=== PATIENT | female | born 1930 | race Caucasian/White ===

== ENCOUNTER 2017-01-02 08:52 | Inpatient (IN) | payer MEDICARE, OTHER ==
--- NOTE | ~2017-01-02 | OP ---
Record Of Operation [facility] [address] [place]. [address] NAME: JERRY LESTER : [birth year] STATUS : ADM IN [facility]#: [id number] AGE: 86 ADM/REG DATE : 01/02/17 MR#: [id number] REPORT SERV DATE: 01/04/17 DICTATED BY: CHRISTIANO CARRENO DATE: 01/03/17 REPORT STATUS : Draft TRANSCRIBED BY: MODL DATE: 01/03/17 DATE OF PROCEDURE: 01/03/2017 SURGEON: Christiano Carreno MD OPERATIVE RECEIVING TEAM MEMBER: MAHI Leija COMPLICATIONS: None. ESTIMATED BLOOD LOSS: Less than 75 mL. DISPOSITION: Stable to recovery room. ANESTHESIA: General with interscalene block augmentation for postoperative pain control. PREOPERATIVE DIAGNOSES: 1. Left shoulder pain. 2. Comminuted displaced 4-part proximal humerus fracture dislocation. POSTOPERATIVE DIAGNOSES: 1. Left shoulder pain. 2. Comminuted displaced 4-part proximal humerus fracture dislocation. OPERATIVE PROCEDURE: 1. Left shoulder evaluation under anesthesia. 2. Left shoulder reverse total shoulder arthroplasty for fracture. 3. Humeral head autograft impaction technique. IMPLANTS USED: One glenoid base plate, one 36 mm glenosphere with a 10-degree inferior tilt, one 7 x 130 mm reversed fracture stem, one 36 x 6 mm polyethylene insert, and four 4.5 screws, two nonlocking and two locking of the appropriate size. OPERATIVE PROCEDURE IN DETAIL: The diagnoses listed above as well as recommended surgical procedure, and risks and benefits thereof discussed in full detail with Jerry Lester and family on the afternoon of 01/03/2017. Ms. Lester is a fairly independent 86-year-old female who is fairly independent living with her granddaughters. She has a fairly complex medical history including some peripheral neuropathy, which has led to several falls in the recent past. She has had multiple dislocations of her right shoulder, but more recently, she suffered a fall which led to a fracture dislocation of her left shoulder. This brought her into the [facility] emergency department, at which time, x-rays demonstrated evidence for a fracture dislocation of the left shoulder. She was originally admitted Dr. Thomas's service at the [facility] facility. After discussion with me, we decided to transfer her to [facility] due to the complexity of her case and the likely need for a reverse total shoulder arthroplasty for management. As that is my area of expertise, Dr. Thomas has requested to transfer her to my service and I have happily agreed. The patient was then transferred to [facility]. The hospitalist was consulted for medical management Record Of Operation [facility] [address] [place]. [address] NAME: JERRY LESTER : [birth year] STATUS : ADM IN PAT#: [id number] AGE: 86 ADM/REG DATE : 01/02/17 MR#: [id number] REPORT SERV DATE: 01/04/17 DICTATED BY: CHRISTIANO CARRENO DATE: 01/03/17 REPORT STATUS : Draft TRANSCRIBED BY: MODL DATE: 01/03/17 and preoperative clearance. They did appropriate tests and ultimately cleared her for surgery today noting that she was at moderate risk due to her medical comorbidities. A lengthy discussion was held with the patient and her family regarding the complexity of her case and the risks and benefits of the procedure. We discussed the conservative nonoperative care as well as the alternative options including open reduction and internal fixation versus hemiarthroplasty. In the end with the hopes of performing one surgery with the most definitive fixation and trying to avoid additional procedures in the future, the decision was made to move forward with a reverse total shoulder arthroplasty. Due to the high level of comminution of her upper proximal humerus fracture and her age of [age] years old, we would like to avoid the need for return to the OR for additional revision type procedures. We believe that the reverse shoulder arthroplasty will likely give her the most stable shoulder and provide pain relief she is seeking. We are also optimistic that she will have a good return of function and be able to return to her previous level of independence. This was discussed in full detail with the patient's family. Appropriate questions were asked, which were answered to their satisfaction. Informed consent was signed, witnessed, and placed in the chart. The left upper extremity was then marked for confirmation and an interscalene block was placed by the anesthesia team with good success. The patient was then wheeled to the operative arena, where general anesthesia was administered. The patient was placed in the beach-chair position with all nonoperative extremities well padded and secured for the duration of the case. The left upper extremity was examined under anesthesia and found to be ecchymotic and unstable from an anterior fracture dislocation. The left upper extremity was then prepped and draped in a typical orthopedic sterile fashion. A surgical pause was performed, confirming both the correct patient as well as proper surgical sites and procedure. All present were in agreement. The patient received appropriate antibiotics for perioperative antibiosis. All standard anatomic landmarks as well as operative incision sites were demarcated using a sterile marking pen. A 10 blade was used to create an 8 cm incision in the coronal plane originating from the posterior border of the acromioclavicular joint and traveling distally over the lateral aspect of the shoulder. The soft tissues were dissected down sharply to expose the deltoid muscular fascia. The anterior muscular raphe was identified and then split providing full access to the subacromial space. The rotator cuff had been torn at the time of the fracture dislocation and retracted somewhat medially. There was maceration of the anterior aspect of the supraspinatus tendon. The biceps had nearly fully torn as well. A longitudinal split was made between the supraspinatus and infraspinatus freeing up of both muscle tendons. The biceps was then captured using Ethibond sutures and released from its insertion on the labral complex for later tenodesis. The deltoid split was continued distally to approximately 4.5 cm off the lateral border of the acromion with great care being taken not to progress distal to this location to avoid injury to the axillary nerve. The axillary nerve was palpated and identified distal to and safe from our operative incision. Full deltoid flaps were then reflected anteriorly and posteriorly. This allowed us further exposure of the glenohumeral joint. The glenoid was fully evaluated and found to be in good condition without evidence for any substantial injury from the fracture dislocation. No bone stalk had been compromised. The labrum was degenerative as would be expected and the chondral surface was showing signs of fairly significant wear. The labrum was excised circumferentially using electrocautery. Our targeting guide was then placed centrally over the glenoid and our starting drill was used to ream a central hole. Our Record Of Operation [facility] [address] [place]. [address] NAME: JERRY LESTER : [birth year] STATUS : ADM IN PAT#: [id number] AGE: 86 ADM/REG DATE : 01/02/17 MR#: [id number] REPORT SERV DATE: 01/04/17 DICTATED BY: CHRISTIANO CARRENO DATE: 01/03/17 REPORT STATUS : Draft TRANSCRIBED BY: NITHIN DATE: 01/03/17 glenoid reamer was then used to ream the articular surface of the glenoid down to a bleeding bone surface. Our PEG drill was then used to increase the size of our central hole. Autograft was harvested from the fracture fragments that had been removed from the fracture site. The fracture fragments were in multiple pieces. There was one primary fragment which compromised approximately 60% of the humeral head. There was a split portion to this fracture fragment and the remainder the fragments including of the greater tuberosity and lesser tuberosity were in multiple pieces with a high level of comminution. All free- floating fragments were excised in their entirety as they were fully devascularized. Any bone fragments which were still attached to soft tissues including rotator cuff insertions were debrided of any bulk, but the shell of bone was preserved for later reattachment of the prosthesis. At this point, her glenoid base plate was inserted into the central hold and impacted into place. All four holes were drilled and filled with the appropriate sized screws, two locking and two nonlocking. Our nonlocking screws were placed anterior and posterior first to secure the glenoid base plate all the way down to the glenoid with good compression. Next, the superior and inferior locking screws were placed with excellent purchase. Pulsatile lavage was used to irrigate the glenoid base plate with copious amounts of sterile saline. A 36 mm glenosphere with a 10-degree inferior tilt was then impacted into place setting the Aj taper on the glenoid base plate. The central fixation screw was then secured for secondary backup fixation. The glenosphere was palpated and found to be extremely solid with excellent positioning on the glenoid inferior and with 10 degrees of the inferior tilt. At this juncture, our attention was returned to the humeral shaft. All fragmentation of bone was excised once again. Pulsatile lavage was used to irrigate out the shaft. Any sharp bony prominences were debrided using a rongeur. The shaft was brought out the wound and exposed laterally. Our diaphyseal reamers were then used and a size 7 diaphyseal reamer was found to fit the most appropriately. Next, a size 7 humeral stem was trialed and found to fit with excellent security. This was trialed along with a 6 mm polyethylene trial and found to articulate nicely with the previously placed glenosphere. At this juncture, the trial was removed. Pulsatile lavage was used to irrigate out the humeral shaft and the operative wound. A cement restrictor was placed two canal diameters distal to the distal most extent of the prosthesis. Cement was then mixed and placed into the humeral shaft after protecting the remainder of the operative wound. A 7 x 130 mm reverse fracture stem was then opened on the back table and inserted into place measuring our retroversion off the forearm. The humeral head autograft cutting jig was used to fashion a perfectly sized bone plug for the proximal portion of the humeral stem. This was debrided of any cartilaginous tissue and then under direct pressure inserted into the precontoured bone graft slot in the proximal humeral stem. The humeral stem was impacted in place. A 36 x 6 mm polyethylene liner was then opened and impacted into place. The reverse glenohumeral joint was then reduced. Any additional free cement was excised from the operative wound and from around the prosthesis. Pulsatile lavage was again used to irrigate the operative wound as well as the prosthesis with copious sterile saline. The glenohumeral joint reverse prosthesis articulated quite nicely was under excellent tensioning. The shoulder was very stable and had a nice return of functional motion. After fully irrigating the operative wound, what was left of the damaged rotator cuff was closed in a [place] style fashion. The biceps was tenodesed into the rotator interval. Record Of Operation [facility] [address] [place]. [address] NAME: JERRY LESTER : [birth year] STATUS : ADM IN [facility]#: [id number] AGE: 86 ADM/REG DATE : 01/02/17 MR#: [id number] REPORT SERV DATE: 01/04/17 DICTATED BY: CHRISTIANO CARRENO DATE: 01/03/17 REPORT STATUS : Draft TRANSCRIBED BY: MODL DATE: 01/03/17 The deltoid split was then closed using FiberWire suture with excellent security. Pulsatile lavage was again used to wash out this next layer with copious amounts of sterile saline. The subcuticular layer was closed with 3-0 Monocryl. The patient reported an allergy to Steri-Strips, so no Steri-Strips were applied. An Aquacel dressing was applied under sterile conditions. The patient was placed in UltraSling for temporary immobilization. She was then awakened from anesthesia without difficulty and transferred to the postanesthesia care unit in stable condition, where her postoperative exam was within normal limits understanding that her interscalene block was still in effect. A lengthy discussion was held with the patient's family detailing all operative findings as well as procedures performed. All questions answered to their satisfaction. We will go ahead and discuss with the hospitalist the plan for continued management of her medical comorbidities. I spoke with Dr. Senior the anesthesiologist, and he plans to treat her very cautiously during her recovery period. We will also go ahead and place her back on her Lovenox for DVT prophylaxis as she will be less mobile in the postoperative period. The patient's family have expressed their understanding of these details and have agreed to comply. CCS/MODL Christiano Carreno M.D. / [id number] CC: Delia Jolly M.D.
--- NOTE | ~2017-01-02 | CN ---
Consultation Report [facility] [address] [place]. [address] NAME: GERSON BIRMINGHAM : [birth year] STATUS : ADM IN [facility]#: [id number] AGE: 86 ADM/REG DATE : 01/02/17 MR#: [id number] REPORT SERV DATE: 01/02/17 DICTATED BY: CLEVELAND SIERRA DATE: 01/02/17 REPORT STATUS : Draft TRANSCRIBED BY: MODL DATE: 01/02/17 DATE OF CONSULTATION: DATE OF ADMISSIONS: 12/31/[address] [facility] and 01/02/2017 at [facility]. REASON FOR CONSULTATION: Medical management. REASON FOR TRANSFER: Left shoulder arthroplasty by Dr. Carreno. HISTORY OF PRESENT ILLNESS: An 86-year-old white female, who lives independently with her granddaughters, suffers from neuropathy somewhat on her feet, ended up breaking her left shoulder. She presented to [facility] for management and evaluation. The patient was placed under Dr. Thomas's service and then transferred to Dr. Carreno's service on 01/02/2017 for a shoulder surgery to be performed at about 3 p.m. on 01/03/2017. Hospice was asked to help with medical management. Granddaughters are at her bedside. She states that she does have some mild cognitive deficits, but has been stumbling a lot on her feet. They noticed that she had spiked a fever at [facility], as high as 102. She states that the patient developed a new murmur, first noted at [facility]. She does suffer from diverticulitis, but has been stable. Granddaughter says that she suffers from chronic bronchitis and notes that her oxygen levels desaturate at times. She is on 4 L at this facility and does not require any oxygen at home. The patient currently denies any chest pain or shortness of breath. She is very pleasant. Denies any loss of consciousness. REVIEW OF SYSTEMS: No chest pain, dysuria, fever, or chills. Positive for fever. PAST MEDICAL HISTORY: Migraines, hypertension, hyperlipidemia, bilateral foot deformities, neuropathy, chronic bronchitis, esophageal stricture. PAST SURGICAL HISTORY: Right wrist ganglion cyst, common bile duct stone removal, hysterectomy, right breast biopsy, cataract surgery. SOCIAL HISTORY: She is a nonsmoker. She is looking her grand children. Typically ambulates with a cane. FAMILY HISTORY: Noncontributory. MEDICATIONS: Being reviewed. PHYSICAL EXAMINATION: VITAL SIGNS: Blood pressure is 135/58, saturating 92% on 4 L, temperature 98.6, with as high as 102.1 at 23:25 hours on 01/01/2017. GENERAL: She is no acute distress. Alert and oriented x3. Very pleasant. Consultation Report [facility] [address] [place]. [address] NAME: GERSON BIRMINGHAM : [birth year] STATUS : ADM IN PAT#: [id number] AGE: 86 ADM/REG DATE : 01/02/17 MR#: [id number] REPORT SERV DATE: 01/02/17 DICTATED BY: CLEVELAND SIERRA DATE: 01/02/17 REPORT STATUS : Draft TRANSCRIBED BY: INTHIN DATE: 01/02/17 HEENT: Normocephalic and atraumatic. She does have a left orbital hematoma. CARDIAC: Regular rhythm with a 3/6 murmur. PULMONARY: Diminished at the bases. Otherwise, clear. ABDOMEN: Soft, nontender, nondistended. Positive bowel sounds. EXTREMITIES: Show no clubbing, cyanosis, or edema. NEUROLOGIC: No focal deficits. SKIN: Warm and dry. PSYCHIATRIC: The patient is cooperative. Mood is appropriate. LABORATORY DATA: Show a white blood cell count of 10, hemoglobin of 10, platelets of 256. BMP is unremarkable. Troponin is 0.03. Left shoulder shows fracture dislocation of the left shoulder. Face shows preseptal soft tissue swelling anterior to the left orbit. CT scan of the brain shows preseptal hematoma anterior to the left orbit. IMPRESSION: 1. Febrile illness on 01/01/2017, possibly urinary tract infection. 2. Acute hypoxic respiratory failure, concerned for possible volume overload. 3. Hypertension. 4. Neuropathy. 5. Left shoulder fracture/dislocation. PLAN: The plan is to discontinue her IV fluids. We will start defensive monitoring. Obtain a chest x-ray and a 2D echocardiogram, to be done on 01/02/2017. A urinalysis with culture. The patient is a full code. We will continue to follow along. Thank you very much for this consult. JENIFER Cleveland Sierra MD / [id number] CC: Christiano Carreno M.D.
--- NOTE | ~2017-01-02 | DS ---
Discharge Summary [facility] [address] [place]. [address] NAME: GERSON BIRMINGHAM : [birth year] STATUS : DIS IN PAT#: [id number] AGE: 86 ADM/REG DATE : 01/02/17 MR#: [id number] REPORT SERV DATE: 01/17/17 DICTATED BY: HERMES BAIG DATE: 01/16/17 REPORT STATUS : Draft TRANSCRIBED BY: NITHIN DATE: 01/16/17 Data Collection from hospitalization DISCHARGE DIAGNOSES: 1. Left shoulder pain. 2. Comminuted/displaced four-part proximal humerus fracture/dislocation. 3. Hypertension. 4. Hypercholesterolemia, mild cognitive deficits. 5. Possible dementia. 6. Chronic bronchitis. 7. Anxiety disorder. 8. Migraines. 9. Neuropathy. CONSULTATION: Dr. Melvin Sierra. PROCEDURES PERFORMED: Left shoulder evaluation under anesthesia; left shoulder reverse total shoulder arthroplasty for fracture; humeral head autograft, impaction technique, 01/03/2017. PATHOLOGY: Bone and soft tissue, left shoulder joint, arthroplasty-changes consistent with recent fracture. No tumor seen. MEDICATIONS: Norvasc 10 mg daily, Coreg 3.125 mg twice a day as instructed, Ceftin 500 mg twice a day, Colace 100 mg twice a day, Lovenox 40 mg subcutaneously daily, Lexapro 10 mg at bedtime, Pepcid 20 mg twice a day, Flonase nasal spray two sprays in each nostril daily, MiraLAX powder one packet daily, Tylenol 650 mg every four hours as needed, Mylanta 30 mL as needed, milk of magnesia 30 mL as needed, Apresoline 10 mg every six hours as needed, Roxicodone 5-10 mg every four hours as needed, Centrum tablets one tablet daily, Sinex one spray nasally daily as needed, Desitin one application topically at bedtime as needed. CONDITION AT DISCHARGE: Stable. DISPOSITION: The patient was discharged to [facility] on a regular diet with activities as instructed. She would follow up with me two weeks following discharge. HOSPITAL COURSE: This is an 86-year-old female, who presented with a left shoulder fracture after a fall. She tripped and fell at her home and experienced immediate severe pain in the left shoulder. She also struck her head in the fall, but denied any loss of consciousness. She was transported to [facility] emergency room and x-rays revealed a fracture/dislocation of the left shoulder pain. She was originally admitted at [facility] and after a discussion with me, we elected to transfer her to the [facility] due to the complexity of her case and the likely need for a reverse total shoulder arthroplasty for management. She was transferred to [facility] and admitted at this time for further evaluation and treatment. Upon admission, she was seen by Dr. Melvin Sierra, regarding medical management. The patient does have some mild cognitive deficits and had been stumbling a lot on her feet. She had spiked a fever at [facility] as high as 102. IV fluids were discontinued. We would start Discharge Summary [address] [place]. [address] NAME: GERSON BIRMINGHAM : [birth year] STATUS : DIS IN [facility]#: [id number] AGE: 86 ADM/REG DATE : 01/02/17 MR#: [id number] REPORT SERV DATE: 01/17/17 DICTATED BY: HERMES BAIG DATE: 01/16/17 REPORT STATUS : Draft TRANSCRIBED BY: NITHIN DATE: 01/16/17 defensive monitoring. Chest x-ray and 2D echocardiogram are going to be obtained. Urinalysis with culture were requested. An echocardiogram was performed. The following day, she was afebrile. She was felt to have a febrile episode from urinary tract infection and questionable right upper lobe infiltrate. We were going to start her empirically on IV Rocephin. Urine CARDIAC MONITOR TECHNICIAN was going to be checked. Incentive spirometry was going to be recommended postoperatively. The patient was taken to the operating room, where she underwent the above-mentioned procedure. She tolerated this well and there were no complications. On postop day one, she was evaluated by Physical Therapy. She felt well, except for the left shoulder pain. Rocephin was continued. Ancef was stopped. Blood pressure was controlled. Over the next couple of days, she continued to progress. She did have a bowel movement. Discharge planning was performed. On 01/06/2017, she was alert and cooperative. She had no edema. She had normal distal pulses. Discharge instructions were given. Due to her improved and stable condition, she was discharged to [facility] with the above-stated instructions. Information collected by: Ольга Monet I submit the above information as my discharge summary. SRINIVAS/MODL Hermes Baig M.D. / [id number] CC: Delia Jolly M.D. [facility]
[~2017-01-02 08:52] MED LIST: ADVIL PO; BYSTOLIC5 MG PO; CENTRUM PO; DESITIN TOP; DYAZIDE1 CAP PO; LEXAPRO10 PO; LIVALO2 MG PO; MAX25 PO; MULTIPLE VIT PO; SINEX NAS; ZOCOR40 PO
[2017-01-02 22:34] LABS: ASCORBIC ACID (UR NOT ORDER) NEG (NEG); BILIRUBIN, URINE NEGATIVE (NEG); KETONE, URINE 20 MG/DL (NEG); LEUKOCYTE ESTERASE(NOT OR LARGE (NEG); WBC (NOT ORDERED) (RFLEX) 168 (0-5)
[2017-01-03 03:45] LABS: BE (BASE EXCESS) 5.1 MEQ/L (0 +/- 2.5); CARBOXYHEMOGLOBIN 0.4 % (0-3); DEVICE NC; HCO3 (ACTUAL BICARBONATE) 32.4 MEQ/L (23-27); HEMOBLOGIN CONTENT 11.1 G/DL (12-16); INSTRUMENT SERIAL # 11843; METHEMOGLOBIN 0.5 % (0-3); O2 CONTENT 14.8 VOL% (18-24); OPERATOR ID 17370; PCO2 (CO2 TENSION) 62 MMHG (35-45); PO2 (O2 TENSION) 80 MMHG (79-93); SAMPLE Arterial; pH 7.34 (7.37-7.43)
[2017-01-03 04:24] LABS: BASOPHILS 0.1 %; BASOPHILS ABSOLUTE 0.01 10/3/uL (0.0-0.16); EOSINOPHILS 2.8 %; EOSINOPHILS ABSOLUTE 0.24 10/3/uL (0.0-0.53); HEMATOCRIT 31.3 % (36.0-48.0); HEMOGLOBIN 10.3 g/dL (12.0-16.0); IMMATURE GRANULOCYTES 0.1 %; IMMATURE GRANULOCYTES ABSOLUTE 0.01 10/3/uL (0.0-0.11); MANUAL DIFF NO %; MEAN CORPUS HGB CONC 32.9 g/dL (32.0-36.0); MEAN CORPUSCULAR HEMOGLOB 28.9 pg (26.0-34.0); MEAN CORPUSCULAR VOLUME 87.7 fL (80-100); MEAN PLATELET VOLUME 9.5 fL (9.2-13.0); MONOCYTES 10.6 %; NEUTROPHILS 66.4 %; NEUTROPHILS ABSOLUTE 5.62 10/3/uL (2.02-8.40); PLATELET COUNT 280 10/3/uL (150-400); RBC DISTRIBUTION WIDTH 12.8 % (12.0-16.0); RED CELL COUNT 3.57 10/6/uL (4.0-5.6); WHITE BLOOD CELLS 8.5 10/3/uL (4.5-10.5)
[2017-01-03 04:43] LABS: A/G RATIO 0.9 (0.7-1.9); ALBUMIN 2.4 G/DL (3.5-5.0); ALKALINE PHOSPHATASE 47 U/L (45-117); BUN (BLOOD UREA NITROGEN) 12 MG/DL (6-23); CALCIUM, SERUM 8.2 MG/DL (8.5-10.4); CHLORIDE, SERUM 100 MMOL/L (96-112); CO2 (CARBON DIOXIDE) 34 MMOL/L (24-34); CREATININE 0.36 MG/DL (0.55-1.02); GFR AFRICAN AMERICAN 112 ML/MIN (>=60); GFR NON AFRICAN AMERICAN 96 ML/MIN (>=60); GLOBULIN 2.8 G/DL (2.5-4.1); PHOSPHORUS, SERUM 1.4 MG/DL (2.5-4.5); SGOT(AST) 17 U/L (5-40); SGPT(ALT) 14 U/L (5-65); SODIUM, SERUM 138 MMOL/L (135-148); TOTAL BILIRUBIN 0.7 MG/DL (0-1.2); TOTAL PROTEIN 5.2 G/DL (6.0-8.5)
[2017-01-03 04:44] LABS: GLUCOSE, SERUM 95 MG/DL (60-99)
[2017-01-03 16:13] LABS: ASCORBIC ACID (UR NOT ORDER) NEG (NEG); BILIRUBIN, URINE NEGATIVE (NEG); KETONE, URINE TRACE MG/DL (NEG); LEUKOCYTE ESTERASE(NOT OR LARGE (NEG); WBC (NOT ORDERED) (RFLEX) 86 (0-5)
[2017-01-04 04:22] LABS: HEMATOCRIT 24.5 % (36.0-48.0); HEMOGLOBIN 8.1 g/dL (12.0-16.0)
[2017-01-04 04:35] LABS: CALCIUM, SERUM 7.6 MG/DL (8.5-10.4); CHLORIDE, SERUM 100 MMOL/L (96-112); CO2 (CARBON DIOXIDE) 35 MMOL/L (24-34); CREATININE 0.49 MG/DL (0.55-1.02); GFR AFRICAN AMERICAN 101 ML/MIN (>=60); GFR NON AFRICAN AMERICAN 87 ML/MIN (>=60); POTASSIUM, SERUM 4.1 MMOL/L (3.5-5.3); SODIUM, SERUM 137 MMOL/L (135-148)
[2017-01-04 04:36] LABS: BUN (BLOOD UREA NITROGEN) 16 MG/DL (6-23); GLUCOSE, SERUM 120 MG/DL (60-99)
== END 2017-01-06 17:54 | disposition home or self-care (01) | DRG 483 ==
LOC: 3SO 08:52
PROVIDERS: Internal Medicine; Specialist
PROC: 0RRK00Z Replacement of Left Shoulder Joint with Reverse Ball and Socket Synthetic Substitute, Open Approach (ICD-10-PCS; principal; 2017-01-02)
DX: S42.92XA Fracture of left shoulder girdle, part unspecified, initial encounter for closed fracture (principal); J96.01 Acute respiratory failure with hypoxia; N39.0 Urinary tract infection, site not specified; I24.8 Other forms of acute ischemic heart disease; I10 Essential (primary) hypertension; G62.9 Polyneuropathy, unspecified; E78.00 Pure hypercholesterolemia, unspecified; W18.30XA Fall on same level, unspecified, initial encounter; F41.9 Anxiety disorder, unspecified; S00.12XA Contusion of left eyelid and periocular area, initial encounter; Q66.9 Congenital deformity of feet, unspecified
CPT/HCPCS: 36600; 70450; 70486; 71010; 73030-LT; 80048; 80053; 81001; 82805; 83735; 84100; 84145; 84484; 85014; 85018; 85025; 85610; 85730; 87077; 87086; 87186; 87641; 88305; 88311; 93005; 93306; 94002; 94640; 96374; 96375; 96376; 97110-GP; 97116-GP; 97161-GP; 99285; A9270-GY; C1713; C1776; G8978-CL-GP; G8979-CJ-GP; J0330; J0690; J1170; J1940; J2250; J2370; J2405; J2710; J2795; J2930; J3010; P9045